=== PATIENT | female | born 1970 | race Caucasian/White ===

== ENCOUNTER 2017-11-29 21:11 | Emergency (ER) | payer OTHER ==
[~2017-11-29] VITALS: Ht 172.7 cm; Wt 59.1 kg
[~2017-11-29 21:11] MED LIST: DARV PO; MOTR200T47 PO; PREN0.01 PO
[2017-11-29 21:15] VITALS: BP 122/74; PULSE 63; RESP 18; TEMP 98.1; O2SAT 100
--- NOTE | 2017-11-29 23:54 | PD ---
HPI Chief Complaint: Musculoskeletal Complaint Time Seen by Provider: 23:30 Travel History International Travel<30 days: No Contact w/Intl Traveler<30days: No Traveled to known affect area: No History of Present Illness HPI Patient is a 47-year-old female presenting to the emergency department for evaluation of a distended varicose vein to her left inner upper leg. Patient states that her pants are rubbing on it all day, she noticed it was swollen and when she pressed on it was mildly tender. She denies any injury or trauma. She denies any swelling in her lower extremity, redness, warmth, pain. She has no history of DVT in the past. She denies any significant medical history. [facility] Past Medical History Medical History: Denies Significant Hx Diminished Hearing: No ?: Not : 2 Para: 0 Miscarriage: 1 Social History Alcohol Use: No Tobacco Use: No Substance Use: No Allergies-Medications (Allergen,Severity, Reaction): Coded Allergies: codeine (Unverified Allergy, Severe, Hallucinations, 04/13/17) penicillin G (Unverified Allergy, Unknown, Rash, 04/13/17) Reported Meds & Prescriptions Reported Meds & Active Scripts Active No Active Prescriptions or Reported Medications Review of Systems Except as stated in HPI: all other systems reviewed are Neg Cardiovascular: Positive: Varicosities Physical Exam Narrative GENERAL: Well-developed, well-nourished, alert female. Presenting in no acute distress. SKIN: Warm and dry. Varicose vein to left lower leg just distal to the knee medially. No erythema, warmth or induration noted. Mildly tender to palpation. Negative Homans sign HEAD: Normocephalic. EYES: No scleral icterus. No injection or drainage. NECK: Supple, trachea midline. No JVD or lymphadenopathy. CARDIOVASCULAR: Regular rate and rhythm without murmurs, gallops, or rubs. RESPIRATORY: Breath sounds equal bilaterally. No accessory muscle use. GASTROINTESTINAL: Abdomen soft, non-tender, nondistended. MUSCULOSKELETAL: No cyanosis, or edema. BACK: Nontender without obvious deformity. No CVA tenderness. Data Data Last Documented VS Vital Signs Date Time Temp Pulse Resp B/P (MAP) Pulse Ox O2 Delivery O2 Flow Rate FiO2 18 21:15 98.1 63 18 122/74 (90) 100 MDM Medical Decision Making Medical Screen Exam Complete: Yes Emergency Medical Condition: Yes Interpretation(s) Vital Signs Date Time Temp Pulse Resp B/P (MAP) Pulse Ox O2 Delivery O2 Flow Rate FiO2 11/29/17 21:15 98.1 63 18 122/74 (90) 100 Differential Diagnosis Varicose vein versus thrombophlebitis versus cellulitis versus DVT versus other Narrative Course Patient is well-appearing 47-year-old female presenting for evaluation of an enlarged varicose vein to her left lower leg. Patient is neurovascularly intact , she has no risk factors for DVT, no previous history of. Exam appears consistent with varicose vein. Patient is encouraged to follow-up with a primary doctor, apply warm compress to affected area and take ibuprofen as needed and as directed for pain. She is encouraged to return to emergency department for any new or worsening symptoms. She verbalized understanding of these instructions. Patient stable for discharge. Diagnosis Primary Impression: Varicose vein of leg Referrals: Primary Care Physician Patient Instructions: General Instructions, Varicose Veins (DC) Additional Instructions: Apply warm compress to affected area, take ibuprofen as needed and as directed for pain. Follow-up with your primary doctor Return to emergency department for any new worsening symptoms Med/Other Pt SpecificInfo: No Change to Meds Scripts No Active Prescriptions or Reported Meds Disposition: 01 DISCHARGE HOME Condition: Stable Rebeca Frances Nov 29, 2017 23:54
== END 2017-11-30 00:05 | disposition home or self-care (01) ==
LOC: NED 21:11 → NEPD 11-30 00:05
DX: I83.892 Varicose veins of left lower extremity with other complications (principal)
CPT/HCPCS: 99282